=== PATIENT | male | born 1970 | race Caucasian/White ===

== ENCOUNTER 2022-02-20 10:24 | Outpatient (CLI) | payer OTHER, SELFPAY ==
--- NOTE | 2022-02-20 10:45 | CRLHL7_ITS ---
For Patients: As a result of the Century Cures Act, medical imaging exams and procedure reports are released immediately into your electronic medical record. You may view this report before your referring provider. If you have questions, please contact your health care provider. Indication: Left testicular swelling. Technique: Ultrasound of the scrotum and contents. Sonographic magallanes-scale images were obtained with spectral and color Doppler waveform and spectral waveform analysis of the testicles. Comparison: None. Findings: Bother testicles are normal in size and echotexture. Right testicle measures 5.1 x 3.4 x 2.4 cm. Left testicle measures 4.6 x 3.4 x 2.3 cm. No intra testicular mass. Few scattered calcifications in testicles. Left varicocele with tubular structure lateral to the left testicle. No identifiable flow within the testicles. Within the varicocele there is a round focal hypoechoic structure measuring 1.3 x 1.3 x 0.9 cm. Epididymis: Unremarkable bilaterally. Normal blood flow. Other: No sign of hydrocele. Scrotal wall is normal. Impression: 1. Left varicocele. 2. Within the left varicocele inferior to the left testicle there is a round hypoechoic mass lesion measuring 1.3 x 1.3 x 0.9 cm of unknown etiology. Findings not definitely a lipoma and appears too large to be thrombosed vein. 2. No intra testicular mass or abnormality. Dictated by Hakan Alegria MD @ 02/20/2022 11:35:05 AM (Electronically Signed)
== END 2022-02-20 10:25 | disposition home or self-care (01) ==
PROVIDERS: PCP Physician Assistant Medical; Visit Provider Family Medicine
DX: N50.89 Other specified disorders of the male genital organs (principal); I86.1 Scrotal varices
CPT/HCPCS: 76870; 93976

== ENCOUNTER 2024-08-04 08:09 | Outpatient (CLI) | payer OTHER, SELFPAY | END 2024-08-04 08:10 | disposition home or self-care (01) | LOC: NFLDREF 08-07 01:46 | PROVIDERS: PCP Physician Assistant Medical; Referring Provider Physician Assistant Medical; Visit Provider Physician Assistant Medical | DX: I10 Essential (primary) hypertension (principal); M17.11 Unilateral primary osteoarthritis, right knee; N52.9 Male erectile dysfunction, unspecified; Z12.5 Encounter for screening for malignant neoplasm of prostate; Z13.29 Encounter for screening for other suspected endocrine disorder; Z13.220 Encounter for screening for lipoid disorders | CPT/HCPCS: 80053; 80061; 84443; G0103 ==